=== PATIENT | female | born 1985 | race Two or more races ===

== ENCOUNTER → 2021-01-30 | Outpatient (CLI) | payer OTHER ==
[~2021-01-30] MED LIST: FLUO20CA19 PO
== END | disposition home or self-care (01) ==
LOC: MERGE 11:00 → RAD 11:08
PROVIDERS: ATTEND Family Medicine
DX: N85.4 Malposition of uterus (principal); R10.2 Pelvic and perineal pain
CPT/HCPCS: 76830